=== PATIENT | female | born 2000 | race Caucasian/White ===

== ENCOUNTER 2019-03-07 22:49 | Emergency (ER) | payer SELFPAY ==
[~2019-03-07] VITALS: Ht 167.6 cm; Wt 68.0 kg
[2019-03-07 23:02] VITALS: BP_SYST 126
--- NOTE | 2019-03-07 23:02 | NUR ---
Patient to ER bed 07 to gown for evaluation. Side rails up.
--- NOTE | 2019-03-07 23:10 | NUR ---
Patient brought in ambulatory by father complaining of body aches, fever, shakiness. Reports unable to feel limbs. Patient appears to be anxious. Tachycardic and tachypnea noted. Denies any naseua, vomiting or diarrhea. No other complaints/injuries per patient or as noted. Will continue to monitor.
[2019-03-07] MEDS ORDERED: NACL 0.9% 1,000 ML IV ONE (23:26)
[2019-03-07] MEDS ORDERED: ACETAMINOPHEN 325 MG TABLET PO ONE (23:30)
--- NOTE | 2019-03-07 23:38 | NUR ---
# 22 gauge angiocath placed to lfa. Use of asceptic technique. Opsite placed over site. Blood return noted. Blood for lab drawn from site. Flushed with 10 cc of normal saline. No evidence of infiltration noted. Patient tolerated well.
--- NOTE | 2019-03-07 23:39 | NUR ---
ER at bedside examining patient.
[2019-03-07 23:55] LABS: BASOPHILS % (AUTO) 0.2 % (0.0-2.0); EOSINOPHILS % (AUTO) 0.4 % (0.0-4.0); HEMATOCRIT 40.6 % (36-48); HEMOGLOBIN 13.9 g/dL (12.0-16.0); LYMPHOCYTES # (AUTO) 0.5 K/uL (1.0-5.5); LYMPHOCYTES % (AUTO) 6.9 % (20.5-51.5); MEAN CORPUSCULAR HEMOGLOBIN 30 pg (27-31); MEAN CORPUSCULAR HGB CONC 34 % (32-36); MEAN CORPUSCULAR VOLUME 87 fL (79.0-98.0); MONOCYTES # (AUTO) 0.5 K/uL (0.0-1.0); MONOCYTES % (AUTO) 6.6 % (1.7-9.3); NEUTROPHILS # (AUTO) 6.5 K/uL (1.8-7.7); NEUTROPHILS % (AUTO) 85.9 % (40.0-70.0); PLATELET COUNT (AUTO) 195 K/uL (130-430); RED BLOOD CELL COUNT(AUTO) 4.66 MIL/uL (4.2-6.2); RED CELL DISTRIBUTION WIDTH 13.8 % (9.0-15.0); WHITE BLOOD COUNT (AUTO) 7.5 K/uL (4.5-11.0)
[2019-03-08 00:17] LABS: CALCIUM 8.3 mg/dL (8.4-11.0); CREATININE 1.07 mg/dL (0.55-1.30); POTASSIUM 3.3 mmol/L (3.5-5.1)
[2019-03-08 00:22] LABS: ALBUMIN 4.4 g/dL (3.4-4.8); TOTAL BILIRUBIN 0.4 mg/dL (0.0-1.0)
[2019-03-08 00:55] LABS: BILIRUBIN,URINE NEGATIVE (NEGATIVE); BLOOD, URINE NEGATIVE (NEGATIVE); CLARITY/URINE CLEAR (CLEAR); COLOR,URINE YELLOW (YELLOW); GLUCOSE,URINE NEGATIVE (NEGATIVE); KETONES,URINE 2+ (NEGATIVE); LEUKOCYTE ESTERASE ,URINE NEGATIVE (NEGATIVE); NITRITE, URINE NEGATIVE (NEGATIVE); PH,URINE 7.5 (5.0-8.0); PROTEIN URINE NEGATIVE (NEGATIVE); UROBILINOGEN,URINE 0.2 (0.2-1.0)
--- NOTE | 2019-03-08 01:41 | NUR ---
Patient reports feeling better after fluids. Patient medicated with Tamiflu. Patient tolerated well.
[2019-03-08] MEDS ORDERED: OSELTAMIVIR PHOSPHATE 75 MG CAPSULE PO ONE (01:45)
[2019-03-08 02:34] VITALS: BP_SYST 100
--- NOTE | 2019-03-08 02:34 | NUR ---
Patient given written and verbal discharge instructions and verbalizes understanding. ER MD discussed with patient the results and treatment provided. Patient in stable condition. ID arm band removed. IV catheter removed intact and dressing applied, no active bleeding. Rx of Tamiflu given. Patient educated on pain management and to follow up with PMD. Pain Scale 0/10 Opportunity for questions provided and answered. Medication side effect fact sheet provided.
== END 2019-03-08 02:34 | disposition home or self-care (01) ==
LOC: SED 22:49
DX: J10.1 Influenza due to other identified influenza virus with other respiratory manifestations (principal); R42 Dizziness and giddiness
CPT/HCPCS: 36415; 71045; 80053; 81003; 83605; 85025; 86710; 87040; 93005; 96360; 99284; G9035; J7030